=== PATIENT | male | born 1985 | race Caucasian/White ===

== ENCOUNTER 2018-04-04 11:04 | Emergency (ER) | payer OTHER ==
[~2018-04-04] VITALS: Ht 182.9 cm; Wt 79.4 kg
[2018-04-04] MEDS ORDERED: L.E.T. SYRINGE 5 ML TOP ONE (11:15)
[2018-04-04] MEDS ORDERED: TETANUS,DIPTH,PERTUSS P/F (BOOSTRIX) 0.5 ML VIAL IM ONE (11:15)
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
--- NOTE | 2018-04-04 11:48 | Diagnostic Imaging Report ---
PROCEDURE: CT head and CT cervical spine without contrast. TECHNIQUE: Multiple contiguous axial images were obtained through the brain and cervical spine without the use of intravenous contrast. Sagittal and coronal reformations through the cervical spine were then performed. INDICATION: Fall. Laceration supraorbital region. FINDINGS: CT head: The ventricles and cortical gyral pattern are normal. There is no evidence of intracranial hemorrhage. There is no mass effect. No extra-axial fluid collections. Basal cisterns are clear. Mastoid air cells and paranasal sinuses are clear. There are no calvarial fractures present. IMPRESSION: Negative CT head. CT cervical spine. 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 No definite cortical fractures are demonstrated. The atlantoaxial joint appears normal. Facets show good alignment. Mild degenerative facet changes are demonstrated. 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 This does appear to be chronic or congenital in nature. No acute abnormalities demonstrated. Dictated by: Dictated on workstation # [id number]
[2018-04-04 12:38] VITALS: BP 117/94
== END 2018-04-04 12:38 | disposition home or self-care (01) ==
LOC: ER 11:08
DX: S01.01XA Laceration without foreign body of scalp, initial encounter (principal); W22.8XXA Striking against or struck by other objects, initial encounter
CPT/HCPCS: 70450; 72125; 90471; 90715